=== PATIENT | male | born 1995 | race Caucasian/White ===

== ENCOUNTER 2018-08-17 18:08 | Inpatient (IN) | payer BC, MEDICARE ==
[~2018-08-17] VITALS: Ht 177.8 cm; Wt 97.5 kg
[2018-08-17 19:32] VITALS: BP 132/73
[2018-08-18 05:25] VITALS: BP 111/60
[2018-08-18 08:19] VITALS: BP 134/84
[2018-08-18] MEDS: ARIPiprazole 5 MG TABLET PO SCH (15:15)
[2018-08-18 16:06] VITALS: BP 141/80
[2018-08-19 06:23] VITALS: BP 142/90
[2018-08-19 08:21] LABS: BASOPHILS % (AUTO) 0.4 % (0.0-2.0); EOSINOPHILS % (AUTO) 2.7 % (1.0-6.0); HEMATOCRIT 45.3 % (41-53); HEMOGLOBIN 15.4 g/dL (13.5-17.5); LYMPHOCYTES # (AUTO) 1.9 K/uL (1.0-4.8); LYMPHOCYTES % (AUTO) 25.9 % (22.0-44.0); MEAN CORPUSCULAR HEMOGLOBIN 31.4 pg (26.0-34.0); MEAN CORPUSCULAR VOLUME 92 fL (80-100); MONOCYTES # (AUTO) 0.6 K/uL (0.1-1.0); MONOCYTES % (AUTO) 7.7 % (2.0-9.0); NEUTROPHILS # (AUTO) 4.6 K/uL (1.8-7.7); NEUTROPHILS % (AUTO) 63.3 % (40.0-70.0); PLATELET COUNT (AUTO) 320 K/uL (150-450); RED BLOOD CELL COUNT(AUTO) 4.91 MIL/uL (4.50-5.90); RED CELL DISTRIBUTION WIDTH 13.1 % (11.5-14.5)
[2018-08-19 08:40] VITALS: BP 142/80
[2018-08-19] MEDS: ARIPiprazole 5 MG TABLET PO SCH (08:40)
[2018-08-19 08:53] LABS: HEMOGLOBIN A1C 5.5 % (4.5-6.2)
[2018-08-19 09:36] LABS: ALANINE AMINOTRANSFERASE 197 U/L (12-78); ALBUMIN 4.4 g/dL (3.4-5.0); ALKALINE PHOSPHATASE 84 U/L (46-116); ANION GAP 12 mmol/L (8-16); ASPARTATE AMINOTRANSFERASE 45 U/L (15-37); BILIRUBIN,TOTAL 0.8 mg/dL (0.1-1.0); CALCIUM, TOTAL 10.1 mg/dL (8.8-10.5); CARBON DIOXIDE 25 mmol/L (22-29); CHLORIDE 100 mmol/L (98-107); CHOL/HDL RATIO 3.9 (4.2-7.3); CHOLESTEROL 163 mg/dL (131-200); CREATININE 0.87 mg/dL (0.60-1.30); FREE T4 (FREE THYROXINE) 0.91 ng/dL (0.76-1.46); GLOMERULAR FILTR. RATE CALC > 60 mL/min (>60); GLUCOSE,RANDOM 91 mg/dL (70-110); HDL CHOLESTEROL 42 mg/dL (40-60); LDL CHOL (CALC.) 108 mg/dL (0-130); POTASSIUM 3.9 mmol/L (3.5-5.1); SODIUM SERUM 137 mmol/L (136-145); THYROID STIMULATING HORMONE 2.53 uIU/mL (0.36-3.74); TOTAL PROTEIN, SERUM 8.3 g/dL (6.4-8.2); TRIGLYCERIDES 65 mg/dL (15-150); UREA NITROGEN, BLOOD 14 mg/dL (7-18)
[2018-08-19 16:04] VITALS: BP 137/77
[2018-08-19] MEDS ORDERED: HALOPERIDOL LACTATE 5 MG/ML VIAL IM ONE (21:00)
[2018-08-19] MEDS ORDERED: DiphenhydrAMINE HCL 50 MG/ML VIAL IM ONE (21:00)
[2018-08-19] MEDS ORDERED: LORazepam 2 MG/ML VIAL IM ONE (21:00)
[2018-08-20 08:17] VITALS: BP 132/65
[2018-08-20] MEDS ORDERED: ARIPiprazole 5 MG TABLET PO SCH (09:00)
[2018-08-20 16:04] VITALS: BP 135/74
[2018-08-21 08:30] VITALS: BP 126/67
[2018-08-21] MEDS ORDERED: ARIPiprazole 15 MG TABLET PO SCH (09:00)
[2018-08-21 16:06] VITALS: BP 141/90
[2018-08-21] MEDS: LORazepam 2 MG TABLET PO PRN (19:47)
[2018-08-22 00:06] VITALS: BP 130/84
[2018-08-22 08:12] VITALS: BP 116/79
[2018-08-22] MEDS: LORazepam 2 MG TABLET PO PRN ×2 (11:05→15:59)
[2018-08-22 17:51] VITALS: BP 131/79
[2018-08-22] MEDS ORDERED: trintellix PO (21:52)
[2018-08-22] MEDS ORDERED: BENZ2TAB10 PO (21:52)
[2018-08-22] MEDS ORDERED: DIVA500T52 PO (21:52)
[2018-08-22] MEDS ORDERED: TRIL8 PO ×2 (21:52→22:01)
[2018-08-22] MEDS ORDERED: CARI3CAP PO (21:52)
[2018-08-23 01:03] VITALS: BP 141/80
[2018-08-23] MEDS: ZOLPIDEM TARTRATE 10 MG TABLET PO PRN (02:59)
[2018-08-23] MEDS: HALOPERIDOL 5 MG TABLET PO PRN ×2 (02:59→12:41)
[2018-08-23] MEDS: LORazepam 2 MG TABLET PO PRN ×3 (02:59→18:38)
[2018-08-23 08:22] VITALS: BP 122/71
[2018-08-23 16:16] VITALS: BP 142/77
[2018-08-24 04:38] VITALS: BP 142/90
[2018-08-24 08:16] VITALS: BP 126/80
[2018-08-24] MEDS: LORazepam 2 MG TABLET PO PRN (09:13)
[2018-08-24 09:28] LABS: ALANINE AMINOTRANSFERASE 92 U/L (12-78); ALBUMIN 4.3 g/dL (3.4-5.0); ALKALINE PHOSPHATASE 70 U/L (46-116); ANION GAP 10 mmol/L (8-16); ASPARTATE AMINOTRANSFERASE 33 U/L (15-37); BILIRUBIN,TOTAL 0.5 mg/dL (0.1-1.0); CALCIUM, TOTAL 9.8 mg/dL (8.8-10.5); CARBON DIOXIDE 28 mmol/L (22-29); CHLORIDE 102 mmol/L (98-107); CHOL/HDL RATIO 3.5 (4.2-7.3); CHOLESTEROL 145 mg/dL (131-200); CREATININE 1.04 mg/dL (0.60-1.30); GLOMERULAR FILTR. RATE CALC > 60 mL/min (>60); GLUCOSE,RANDOM 86 mg/dL (70-110); HDL CHOLESTEROL 41 mg/dL (40-60); LDL CHOL (CALC.) 91 mg/dL (0-130); POTASSIUM 4.4 mmol/L (3.5-5.1); SODIUM SERUM 140 mmol/L (136-145); TOTAL PROTEIN, SERUM 7.5 g/dL (6.4-8.2); TRIGLYCERIDES 66 mg/dL (15-150); UREA NITROGEN, BLOOD 14 mg/dL (7-18)
[2018-08-24] MEDS: HALOPERIDOL 5 MG TABLET PO SCH ×2 (11:45→16:34)
[2018-08-24 16:05] VITALS: BP 133/97
[2018-08-25 02:30] VITALS: BP 114/78
[2018-08-25] MEDS: HALOPERIDOL 5 MG TABLET PO SCH (08:02)
[2018-08-25] MEDS: LORazepam 2 MG TABLET PO PRN (08:44)
[2018-08-25 16:02] VITALS: BP 134/84
[2018-08-25] MEDS: HALOPERIDOL 10 MG TABLET PO SCH (20:56)
[2018-08-26 00:25] VITALS: BP 107/64
[2018-08-26 08:09] VITALS: BP 129/79
[2018-08-26] MEDS: HALOPERIDOL 5 MG TABLET PO SCH (08:43)
[2018-08-26 16:04] VITALS: BP 137/75
[2018-08-26] MEDS: HALOPERIDOL 10 MG TABLET PO SCH (20:43)
[2018-08-27 01:32] VITALS: BP 121/78
[2018-08-27] MEDS: ZOLPIDEM TARTRATE 10 MG TABLET PO PRN (01:36)
[2018-08-27] MEDS: HALOPERIDOL 5 MG TABLET PO PRN (01:36)
[2018-08-27] MEDS: LORazepam 2 MG TABLET PO PRN ×3 (03:31→20:33)
[2018-08-27 08:20] VITALS: BP 120/66
[2018-08-27] MEDS: HALOPERIDOL 5 MG TABLET PO SCH (08:27)
[2018-08-27] MEDS ORDERED: VORT20TA PO (15:06)
[2018-08-27 16:27] VITALS: BP 116/77
[2018-08-27] MEDS: HALOPERIDOL 10 MG TABLET PO SCH (20:11)
[2018-08-28 02:41] VITALS: BP 136/80
[2018-08-28] MEDS: HALOPERIDOL 10 MG TABLET PO SCH (08:05)
[2018-08-28 08:47] LABS: ALANINE AMINOTRANSFERASE 86 U/L (12-78); ALBUMIN 4.5 g/dL (3.4-5.0); ALKALINE PHOSPHATASE 71 U/L (46-116); ANION GAP 9 mmol/L (8-16); ASPARTATE AMINOTRANSFERASE 39 U/L (15-37); BILIRUBIN,TOTAL 0.5 mg/dL (0.1-1.0); CALCIUM, TOTAL 9.5 mg/dL (8.8-10.5); CARBON DIOXIDE 27 mmol/L (22-29); CHLORIDE 103 mmol/L (98-107); CREATININE 0.99 mg/dL (0.60-1.30); GLOMERULAR FILTR. RATE CALC > 60 mL/min (>60); GLUCOSE,RANDOM 94 mg/dL (70-110); POTASSIUM 4.2 mmol/L (3.5-5.1); SODIUM SERUM 139 mmol/L (136-145); TOTAL PROTEIN, SERUM 8.1 g/dL (6.4-8.2); UREA NITROGEN, BLOOD 14 mg/dL (7-18)
[2018-08-28 09:04] VITALS: BP 150/84
[2018-08-28] MEDS ORDERED: HALO5TAB23 PO (10:58)
== END 2018-08-28 13:15 | disposition home or self-care (01) | DRG 885 ==
LOC: B2X 18:46
PROVIDERS: ADMIT Psychiatry & Neurology Child & Adolescent Psychiatry; ATTEND Psychiatry & Neurology Child & Adolescent Psychiatry
DX: F20.0 Paranoid schizophrenia (principal); F12.90 Cannabis use, unspecified, uncomplicated; J45.909 Unspecified asthma, uncomplicated; R79.89 Other specified abnormal findings of blood chemistry; Z88.8 Allergy status to other drugs, medicaments and biological substances; Z79.899 Other long term (current) drug therapy
CPT/HCPCS: 80074; 83036; 84439; 84443; 87081; J1200; J1630; J2060

== ENCOUNTER 2018-09-05 19:09 | Inpatient (IN) | payer MEDICARE ==
[~2018-09-05] VITALS: Ht 177.8 cm; Wt 96.4 kg
[~2018-09-05 19:09] MED LIST: HALO5TAB23 PO; PALI234D IM
[2018-09-05] MEDS ORDERED: HALO10 PO (19:28)
[2018-09-05 21:31] VITALS: BP 145/88
[2018-09-05] MEDS: LORazepam 2 MG TABLET PO PRN (21:40)
[2018-09-06 00:05] VITALS: BP 132/80
[2018-09-06 08:00] VITALS: BP 141/88
[2018-09-06] MEDS: ClonazePAM 0.5 MG TABLET PO SCH ×2 (09:00→16:22)
[2018-09-06] MEDS: BENZTROPINE MESYLATE 1 MG TABLET PO SCH ×2 (09:00→16:22)
[2018-09-06] MEDS ORDERED: HALOPERIDOL 10 MG TABLET PO SCH (09:00)
[2018-09-06] MEDS: LORazepam 2 MG TABLET PO PRN ×2 (10:58→16:22)
[2018-09-06] MEDS: HALOPERIDOL 10 MG TABLET PO SCH ×3 (10:59→20:28)
[2018-09-06 17:01] VITALS: BP 131/74
[2018-09-07 06:17] LABS: BASOPHILS % (AUTO) 0.4 % (0.0-2.0); EOSINOPHILS % (AUTO) 5.7 % (1.0-6.0); HEMATOCRIT 44.4 % (41-53); HEMOGLOBIN 15.1 g/dL (13.5-17.5); LYMPHOCYTES % (AUTO) 37.2 % (22.0-44.0); MEAN CORPUSCULAR HEMOGLOBIN 31.6 pg (26.0-34.0); MEAN CORPUSCULAR HGB CONC 34.1 G/dL (31.0-37.0); MEAN CORPUSCULAR VOLUME 93 fL (80-100); MONOCYTES # (AUTO) 0.5 K/uL (0.1-1.0); MONOCYTES % (AUTO) 9.5 % (2.0-9.0); NEUTROPHILS # (AUTO) 2.5 K/uL (1.8-7.7); NEUTROPHILS % (AUTO) 47.2 % (40.0-70.0); PLATELET COUNT (AUTO) 284 K/uL (150-450); RED BLOOD CELL COUNT(AUTO) 4.79 MIL/uL (4.50-5.90); RED CELL DISTRIBUTION WIDTH 13.1 % (11.5-14.5)
[2018-09-07] MEDS ORDERED: DiphenhydrAMINE HCL 50 MG/ML VIAL ONE (06:29)
[2018-09-07] MEDS ORDERED: LORazepam 2 MG/ML VIAL IM ONE (06:30)
[2018-09-07] MEDS ORDERED: DiphenhydrAMINE HCL 50 MG/ML VIAL IM ONE (06:30)
[2018-09-07] MEDS ORDERED: HALOPERIDOL LACTATE 5 MG/ML VIAL IM ONE (06:30)
[2018-09-07] MEDS ORDERED: CloZAPine 25 MG TABLET PO SCH (09:00)
[2018-09-07] MEDS: ClonazePAM 0.5 MG TABLET PO SCH ×2 (09:51→17:11)
[2018-09-07] MEDS: HALOPERIDOL 10 MG TABLET PO SCH ×3 (09:52→20:35)
[2018-09-07] MEDS: BENZTROPINE MESYLATE 1 MG TABLET PO SCH ×2 (09:52→17:11)
[2018-09-07 13:33] VITALS: BP 124/85
[2018-09-07 16:45] VITALS: BP 135/70
[2018-09-07] MEDS: LORazepam 2 MG TABLET PO PRN (20:35)
[2018-09-07] MEDS: ZOLPIDEM TARTRATE 10 MG TABLET PO PRN (20:35)
[2018-09-08] MEDS: HALOPERIDOL 5 MG TABLET PO PRN (06:00)
[2018-09-08] MEDS: LORazepam 2 MG TABLET PO PRN (06:00)
[2018-09-08] MEDS ORDERED: HALOPERIDOL LACTATE 5 MG/ML VIAL ONE (06:28)
[2018-09-08] MEDS ORDERED: DiphenhydrAMINE HCL 50 MG/ML VIAL IM ONE (06:30)
[2018-09-08] MEDS ORDERED: LORazepam 2 MG/ML VIAL IM ONE (06:30)
[2018-09-08] MEDS ORDERED: HALOPERIDOL LACTATE 5 MG/ML VIAL IM ONE ×2 (06:30→06:45)
[2018-09-08] MEDS: BENZTROPINE MESYLATE 1 MG TABLET PO SCH ×2 (08:47→16:00)
[2018-09-08] MEDS: HALOPERIDOL 10 MG TABLET PO SCH ×3 (08:47→20:06)
[2018-09-08] MEDS: ClonazePAM 0.5 MG TABLET PO SCH ×2 (08:48→16:00)
[2018-09-08] MEDS ORDERED: CloZAPine 25 MG TABLET PO SCH ×2 (09:00→21:00)
[2018-09-08 09:54] VITALS: BP 143/83
[2018-09-08 13:44] LABS: APPEARANCE,URINE CLEAR (CLEAR); BILIRUBIN,URINE NEGATIVE (NEGATIVE); GLUCOSE, URINE (UA) NEGATIVE (NEGATIVE); KETONES,URINE NEGATIVE (NEGATIVE); LEUKOCYTE ESTERASE ,URINE NEGATIVE (NEGATIVE); NITRATE,URINE NEGATIVE (NEGATIVE); OCCULT BLOOD,URINE NEGATIVE (NEGATIVE); PROTEIN,URINE NEGATIVE (NEGATIVE); UROBILINOGEN,URINE 0.2 mg/dL (<=1.0)
[2018-09-08 13:57] LABS: AMPHET/METH SCREEN,URINE NEGATIVE (NEGATIVE); BARBITURATE SCREEN, URINE NEGATIVE (NEGATIVE); BENZODIAZEPINES SCREEN,URINE NEGATIVE (NEGATIVE); CANNABINOID SCREEN,URINE NEGATIVE (NEGATIVE); COCAINE SCREEN,URINE NEGATIVE (NEGATIVE); METHADONE SCREEN, URINE NEGATIVE (NEGATIVE); OPIATE SCREEN,URINE NEGATIVE (NEGATIVE); PHENCYCLIDINE SCREEN,URINE NEGATIVE (NEGATIVE)
[2018-09-08 18:18] VITALS: BP 138/87
[2018-09-09] MEDS: ClonazePAM 0.5 MG TABLET PO SCH ×2 (07:51→16:33)
[2018-09-09] MEDS: HALOPERIDOL 5 MG TABLET PO PRN (07:51)
[2018-09-09] MEDS: BENZTROPINE MESYLATE 1 MG TABLET PO SCH ×2 (07:52→16:33)
[2018-09-09] MEDS: LORazepam 2 MG TABLET PO PRN (07:52)
[2018-09-09] MEDS: HALOPERIDOL 10 MG TABLET PO SCH ×4 (07:54→20:13)
[2018-09-09 08:00] VITALS: BP 135/76
[2018-09-09] MEDS ORDERED: CloZAPine 25 MG TABLET PO SCH ×2 (09:00→21:00)
[2018-09-09 18:22] VITALS: BP 130/64
[2018-09-10 08:30] VITALS: BP 135/85
[2018-09-10] MEDS: BENZTROPINE MESYLATE 1 MG TABLET PO SCH ×2 (08:40→16:00)
[2018-09-10] MEDS: HALOPERIDOL 10 MG TABLET PO SCH ×3 (08:41→20:07)
[2018-09-10] MEDS: CloZAPine 25 MG TABLET PO SCH ×3 (08:41→20:07)
[2018-09-10] MEDS: ClonazePAM 0.5 MG TABLET PO SCH ×2 (08:41→16:00)
[2018-09-10] MEDS: LORazepam 2 MG TABLET PO PRN (11:14)
[2018-09-10 16:35] VITALS: BP 148/74
[2018-09-11 08:00] VITALS: BP 136/79
[2018-09-11] MEDS: HALOPERIDOL 10 MG TABLET PO SCH ×3 (09:15→21:00)
[2018-09-11] MEDS: ClonazePAM 0.5 MG TABLET PO SCH ×2 (09:15→17:00)
[2018-09-11] MEDS: CloZAPine 25 MG TABLET PO SCH ×2 (09:15→21:00)
[2018-09-11] MEDS: BENZTROPINE MESYLATE 1 MG TABLET PO SCH ×2 (09:16→17:00)
[2018-09-11 16:28] VITALS: BP 118/85
[2018-09-12 08:05] VITALS: BP 121/89
[2018-09-12] MEDS: BENZTROPINE MESYLATE 1 MG TABLET PO SCH ×2 (09:00→17:00)
[2018-09-12] MEDS ORDERED: CloZAPine 25 MG TABLET PO SCH (09:00)
[2018-09-12] MEDS: ClonazePAM 0.5 MG TABLET PO SCH ×2 (09:00→17:00)
[2018-09-12] MEDS: HALOPERIDOL 10 MG TABLET PO SCH ×3 (09:00→20:16)
[2018-09-12] MEDS ORDERED: LORazepam 2 MG/ML VIAL IM ONE (10:30)
[2018-09-12 19:42] VITALS: BP 137/91
[2018-09-12] MEDS ORDERED: CloZAPine 100 MG TABLET PO SCH (21:00)
[2018-09-12] MEDS: ZOLPIDEM TARTRATE 10 MG TABLET PO PRN (22:20)
[2018-09-13] MEDS: BENZTROPINE MESYLATE 1 MG TABLET PO SCH (08:22)
[2018-09-13] MEDS: ClonazePAM 0.5 MG TABLET PO SCH (08:25)
[2018-09-13] MEDS: HALOPERIDOL 10 MG TABLET PO SCH (08:25)
[2018-09-13] MEDS ORDERED: CloZAPine 25 MG TABLET PO SCH (09:00)
[2018-09-13 09:52] VITALS: BP 116/76
[2018-09-13] MEDS ORDERED: CLOZ100 PO (10:03)
[2018-09-13] MEDS ORDERED: BENZ1TAB10 PO (10:03)
[2018-09-13] MEDS ORDERED: CLON.5 PO (10:04)
[2018-09-13] MEDS ORDERED: CloZAPine 100 MG TABLET PO SCH (21:00)
[2018-09-14] MEDS ORDERED: CloZAPine 25 MG TABLET PO SCH (09:00)
[2018-09-14] MEDS ORDERED: CloZAPine 100 MG TABLET PO SCH (21:00)
[2018-09-15] MEDS ORDERED: CloZAPine 100 MG TABLET PO SCH (09:00)
[2018-09-17] MEDS ORDERED: CloZAPine 25 MG TABLET PO SCH (09:00)
[2018-09-17] MEDS ORDERED: CloZAPine 100 MG TABLET PO SCH (21:00)
[2018-09-18] MEDS ORDERED: CloZAPine 25 MG TABLET PO SCH (09:00)
[2018-09-18] MEDS ORDERED: CloZAPine 100 MG TABLET PO SCH (21:00)
[2018-09-19] MEDS ORDERED: CloZAPine 100 MG TABLET PO SCH ×2 (09:00→21:00)
== END 2018-09-13 13:53 | disposition home or self-care (01) | DRG 885 ==
LOC: B2X 19:24 → 3EC 23:35
PROVIDERS: ADMIT Psychiatry & Neurology Child & Adolescent Psychiatry; ATTEND Psychiatry & Neurology Child & Adolescent Psychiatry
DX: F25.0 Schizoaffective disorder, bipolar type (principal); A41.9 Sepsis, unspecified organism; R65.20 Severe sepsis without septic shock; F12.90 Cannabis use, unspecified, uncomplicated; J45.909 Unspecified asthma, uncomplicated
CPT/HCPCS: 80307; 87081; J1200; J1630; J2060; J3230